=== PATIENT | female | born 1970 | race Hispanic/Latino ===

== ENCOUNTER 2025-02-11 13:31 | Outpatient (CLI) | payer OTHER | END 2025-02-11 13:32 | disposition home or self-care (01) | LOC: SCSRAD 13:31 | PROVIDERS: ATTEND Nurse Practitioner Family | DX: M54.50 Low back pain, unspecified (principal); M53.3 Sacrococcygeal disorders, not elsewhere classified | CPT/HCPCS: 72110; 72220 ==